=== PATIENT | female | born 1945 ===

== ENCOUNTER 2020-12-28 17:26 | Inpatient (IN) ==
[2020-12-28] MEDS ORDERED: diphenhydrAMINE CAP 25 MG CAPSULE PO PRN (20:30)
[2020-12-28] MEDS ORDERED: DEXTROSE 50% 25 GM/50 ML VIAL IV PRN (20:30)
[2020-12-28] MEDS ORDERED: MORPHINE 4 MG/1 ML VIAL IV PRN (20:30)
[2020-12-28] MEDS ORDERED: hydrALAZINE 20 MG/1 ML VIAL IV PRN (20:30)
[2020-12-28] MEDS ORDERED: NICOTINE 21 MG/24 HR PATCH TRANSDERM PRN (20:30)
[2020-12-28] MEDS ORDERED: ONDANSETRON 4 MG/2 ML VIAL IV PRN (20:30)
[2020-12-28] MEDS ORDERED: GLUCAGON 1 MG VIAL IM PRN (20:30)
[2020-12-28] MEDS ORDERED: ACETAMINOPHEN 325 MG TABLET PO PRN (20:30)
[2020-12-28 21:06] LABS: Hematocrit 41.6 VOL% (35.7-47.0); Immature Granulocytes % 0.6 %; Immature Granulocytes Absolute 0.04 #; Lymphocytes # 0.3 10*3/uL (1.4-4.0); Lymphocytes % 4.7 % (21.3-54.2); Mean Corpuscular HGB Conc 33.7 GM/DL (32-36); Mean Corpuscular Volume 86.1 FL (87-102); Mean Platelet Volume 11.5 FL (9.6-12.0); Monocytes % 6.4 % (1.7-12.7); Neutrophils % 88.3 % (38.7-73.9); Platelet Count 104 T/CUMM (130-400); Red Blood Count 4.83 MC/CUMM (3.8-5.5); Red Cell Distribution Width 18.4 % (9.3-17.3)
[2020-12-28 21:28] LABS: Lymphocytes 7 % (20-55); Segmented Neutrophils 91 % (50-85); Total Cells Counted 100
[2020-12-28 21:30] LABS: Albumin 2.8 G/DL (3.4-5.0); Calcium 8.8 MG/DL (8.5-10.1); Osmolality,Calculated 295.5 MOS/KG (273-304)
[2020-12-28 21:46] LABS: Potassium 6.1 MMOL/L (3.5-5.1)
[2020-12-28] MEDS ORDERED: SODIUM POLYSTYRENE SULFATE 15 GM/60 ML BOTTLE PO ONE (21:58)
[2020-12-29] MEDS: ALBUTEROL/IPRATROPIUM 3 ML NEB RESP TX SCH ×3 (07:02→19:46)
[2020-12-29 08:36] LABS: Albumin 2.6 G/DL (3.4-5.0); Osmolality,Calculated 291.8 MOS/KG (273-304); Potassium 5.8 MMOL/L (3.5-5.1); Total Protein 6.9 G/DL (6.4-8.3)
[2020-12-29] MEDS ORDERED: SODIUM POLYSTYRENE SULFATE 15 GM/60 ML BOTTLE PO SCH (15:00)
[2020-12-29] MEDS: SODIUM POLYSTYRENE SULFATE 15 GM/60 ML BOTTLE RECTAL SCH ×2 (15:58→23:05)
[2020-12-30] MEDS: ALBUTEROL/IPRATROPIUM 3 ML NEB RESP TX SCH ×4 (00:39→19:53)
[2020-12-30] MEDS: SODIUM POLYSTYRENE SULFATE 15 GM/60 ML BOTTLE RECTAL SCH ×2 (05:54→07:42)
[2020-12-30] MEDS: carvediloL 6.25 MG TABLET PO SCH (08:13)
[2020-12-30] MEDS: DIGOXIN 0.125 MG TABLET PO SCH (08:13)
[2020-12-30] MEDS: ASPIRIN CHEW 81 MG TABLET PO SCH (08:13)
[2020-12-30 08:15] LABS: Hemoglobin 12.3 GM/DL (12.0-16.0); Immature Granulocytes % 0.6 %; Immature Granulocytes Absolute 0.04 #; Lymphocytes # 0.2 10*3/uL (1.4-4.0); Lymphocytes % 3.4 % (21.3-54.2); Mean Corpuscular HGB Conc 31.5 GM/DL (32-36); Mean Corpuscular Volume 89.9 FL (87-102); Monocytes % 4.1 % (1.7-12.7); Neutrophils % 91.9 % (38.7-73.9); Red Blood Count 4.34 MC/CUMM (3.8-5.5); White Blood Count 6.5 T/CUMM (4-12)
[2020-12-30 08:23] LABS: Platelet Count 82 T/CUMM (130-400)
[2020-12-30 08:35] LABS: Band Neutrophils 1 % (0-10); Lymphocytes 2 % (20-55); Platelet Estimate Decreased; Segmented Neutrophils 96 % (50-85); Total Cells Counted 100
[2020-12-30 09:17] LABS: Calcium 8.7 MG/DL (8.5-10.1); Potassium 3.6 MMOL/L (3.5-5.1)
[2020-12-31] MEDS: ALBUTEROL/IPRATROPIUM 3 ML NEB RESP TX SCH ×4 (01:03→19:49)
[2020-12-31 04:10] LABS: Basophils # 0.1 10*3/uL (0.0-0.2); Basophils % 0.6 % (0.0-0.8); Hematocrit 34.9 VOL% (35.7-47.0); Hemoglobin 11.8 GM/DL (12.0-16.0); Immature Granulocytes % 0.6 %; Immature Granulocytes Absolute 0.05 #; Lymphocytes # 0.2 10*3/uL (1.4-4.0); Lymphocytes % 2.1 % (21.3-54.2); Mean Corpuscular HGB Conc 33.8 GM/DL (32-36); Mean Corpuscular Volume 85.3 FL (87-102); Monocytes % 5.6 % (1.7-12.7); Neutrophils % 91.1 % (38.7-73.9); Platelet Count 60 T/CUMM (130-400); Red Blood Count 4.09 MC/CUMM (3.8-5.5); Red Cell Distribution Width 17.6 % (9.3-17.3); White Blood Count 8.4 T/CUMM (4-12)
[2020-12-31 04:28] LABS: Calcium 8.7 MG/DL (8.5-10.1); Osmolality,Calculated 291.1 MOS/KG (273-304); Potassium 3.6 MMOL/L (3.5-5.1)
[2020-12-31 05:05] LABS: Lymphocytes 1 % (20-55); Segmented Neutrophils 95 % (50-85); Total Cells Counted 100
[2020-12-31 05:06] LABS: Hypochromasia 1+; Microcytosis 1+; Ovalocytes Few
[2020-12-31 05:07] LABS: Platelet Estimate Decreased; Target Cells Slight
[2020-12-31] MEDS: carvediloL 6.25 MG TABLET PO SCH (08:53)
[2020-12-31] MEDS: DIGOXIN 0.125 MG TABLET PO SCH (08:53)
[2020-12-31] MEDS: ASPIRIN CHEW 81 MG TABLET PO SCH (08:53)
[2020-12-31 11:52] LABS: Albumin 2.2 G/DL (3.4-5.0); Bilirubin,Direct 0.32 MG/DL (0.0-0.20); Bilirubin,Indirect 1.5 MG/DL (0.0-1.0); Bilirubin,Total 1.8 MG/DL (0.2-1.0); Total Protein 6.3 G/DL (6.4-8.3)
[2020-12-31] MEDS ORDERED: HEPARIN DRIP 25,000 UNITS/500 ML PREMIX IV SCH (15:00)
[2020-12-31] MEDS ORDERED: ENOXAPARIN 60 MG/0.6 ML SYRINGE SUBCUT SCH (15:00)
[2021-01-01 03:17] LABS: Basophils % 0.1 % (0.0-0.8); Hematocrit 35.3 VOL% (35.7-47.0); Hemoglobin 11.8 GM/DL (12.0-16.0); Immature Granulocytes % 0.6 %; Immature Granulocytes Absolute 0.05 #; Lymphocytes # 0.2 10*3/uL (1.4-4.0); Lymphocytes % 2.6 % (21.3-54.2); Mean Corpuscular HGB Conc 33.4 GM/DL (32-36); Mean Corpuscular Volume 87.8 FL (87-102); Monocytes % 5.2 % (1.7-12.7); Neutrophils % 91.5 % (38.7-73.9); Red Blood Count 4.02 MC/CUMM (3.8-5.5); Red Cell Distribution Width 17.8 % (9.3-17.3); White Blood Count 8.3 T/CUMM (4-12)
[2021-01-01 03:18] LABS: Platelet Count 49 T/CUMM (130-400)
[2021-01-01 03:42] LABS: Albumin 2.2 G/DL (3.4-5.0); Bilirubin,Total 1.5 MG/DL (0.2-1.0); Calcium 8.7 MG/DL (8.5-10.1); Osmolality,Calculated 291.7 MOS/KG (273-304); Potassium 3.1 MMOL/L (3.5-5.1); Total Protein 6.5 G/DL (6.4-8.3)
[2021-01-01 04:24] LABS: Metamyelocytes 1 %; Segmented Neutrophils 95 % (50-85); Total Cells Counted 100
[2021-01-01 04:25] LABS: Band Neutrophils 1 % (0-10); Lymphocytes 2 % (20-55)
[2021-01-01 04:26] LABS: Hypochromasia 1+; Microcytosis 1+; Ovalocytes Slight; Platelet Estimate Decreased; Target Cells Slight
[2021-01-01] MEDS: ALBUTEROL/IPRATROPIUM 3 ML NEB RESP TX SCH ×4 (05:02→19:49)
[2021-01-01] MEDS: carvediloL 6.25 MG TABLET PO SCH (08:54)
[2021-01-01] MEDS: POTASSIUM CHLORIDE 20 MEQ TABLET PO PRN ×2 (08:54→11:05)
[2021-01-01] MEDS: DIGOXIN 0.125 MG TABLET PO SCH (08:54)
[2021-01-01] MEDS: POLYETHYLENE GLYCOL POWDER 17 GM PACK PO SCH (08:55)
[2021-01-01] MEDS: ASPIRIN CHEW 81 MG TABLET PO SCH (08:55)
[2021-01-01] MEDS ORDERED: CITALOPRAM 20 MG TABLET PO SCH (09:00)
[2021-01-01 11:15] LABS: ABG Base Excess 5.1 MMOL/L (-2.5-2.5); ABG Oxygen Saturation 97.7 % (95-100); ABG PCO2 29.1 MM HG (35-48); ABG PH 7.569 (7.35-7.45); ABG PO2 78.4 MM HG (80-95); ABG TCO2 23.6 MMOL/L (23-27)
[2021-01-01] MEDS ORDERED: PIPERACILLIN/TAZOBACTAM 3,375 MG in SODIUM CHLORIDE 0.9% 100 ML IV SCH (13:00)
[2021-01-01 13:03] LABS: Hematocrit 33.5 VOL% (35.7-47.0); Hemoglobin 10.7 GM/DL (12.0-16.0); Immature Granulocytes % 0.6 %; Immature Granulocytes Absolute 0.07 #; Lymphocytes # 0.3 10*3/uL (1.4-4.0); Lymphocytes % 2.6 % (21.3-54.2); Mean Corpuscular HGB Conc 31.9 GM/DL (32-36); Mean Corpuscular Volume 86.8 FL (87-102); Monocytes % 6.1 % (1.7-12.7); Neutrophils % 90.7 % (38.7-73.9); Platelet Count 53 T/CUMM (130-400); Red Blood Count 3.86 MC/CUMM (3.8-5.5); Red Cell Distribution Width 17.8 % (9.3-17.3); White Blood Count 11.2 T/CUMM (4-12)
[2021-01-01 13:20] LABS: Amorphous Crystals,Urine Occasional /HPF (Few); Bacteria,Urine Moderate /HPF (Few); Bilirubin,Urine Negative (Negative); Blood, Urine Large mg/dL (Negative); Glucose,Urine (UA) Negative (Negative); Hyaline Casts,Urine 71 /LPF (0-3); Ketones,Urine Negative (Negative); Mucus,Urine Few /LPF (Occasional); Nitrite,Urine Negative (Negative); Protein,Urine 100 MG/DL; RBC,Urine 693 /HPF (0-4); Squamous Epithelial Cell,Urine Occasional /HPF (0-10); Urine Appearance CLOUDY (Clear); Urine Color Amber (Yellow); Urine Specific Gravity 1.017 (1.001-1.035); WBC,Urine 52 /HPF (0-6)
[2021-01-01] MEDS ORDERED: SODIUM CHLORIDE 0.9% 250 ML IV ONE ×3 (14:40→18:48)
[2021-01-01] MEDS: LEVOFLOXACIN INJ 750 MG in PREMIX 1 EACH IV SCH (14:58)
[2021-01-01 15:21] LABS: Hematocrit 36.3 VOL% (35.7-47.0); Hemoglobin 11.6 GM/DL (12.0-16.0)
[2021-01-01] MEDS: POTASSIUM CHLORIDE RIDER 10 MEQ in PREMIX 1 EACH IV PRN ×2 (18:41→20:30)
[2021-01-01 19:01] LABS: Anisocytosis 3+; Hypochromasia 3+; Lymphocytes 1 % (20-55); Microcytosis 3+; Nucleated Red Blood Cells 1 (0-5); Poikilocytosis 2+; Segmented Neutrophils 93 % (50-85); Total Cells Counted 100
[2021-01-01] MEDS: NOREPINEPHRINE 8 MG in SODIUM CHLORIDE 0.9% 242 ML IV PRN (20:11)
[2021-01-01] MEDS ORDERED: APIXABAN 2.5 MG TABLET PO SCH (21:00)
[2021-01-02] MEDS: ALBUTEROL/IPRATROPIUM 3 ML NEB RESP TX SCH ×4 (00:38→19:26)
[2021-01-02 06:49] LABS: Basophils % 0.2 % (0.0-0.8); Hematocrit 37.4 VOL% (35.7-47.0); Hemoglobin 11.2 GM/DL (12.0-16.0); Immature Granulocytes % 0.6 %; Immature Granulocytes Absolute 0.09 #; Lymphocytes # 0.5 10*3/uL (1.4-4.0); Lymphocytes % 2.8 % (21.3-54.2); Mean Corpuscular HGB Conc 29.9 GM/DL (32-36); Mean Corpuscular Volume 92.8 FL (87-102); Mean Platelet Volume 11.6 FL (9.6-12.0); Monocytes % 4.4 % (1.7-12.7); Platelet Count 72 T/CUMM (130-400); Red Blood Count 4.03 MC/CUMM (3.8-5.5); Red Cell Distribution Width 17.8 % (9.3-17.3); White Blood Count 16.2 T/CUMM (4-12)
[2021-01-02 07:05] LABS: Calcium 8.4 MG/DL (8.5-10.1); Osmolality,Calculated 291.5 MOS/KG (273-304); Potassium 4.3 MMOL/L (3.5-5.1)
[2021-01-02 07:17] LABS: Hypochromasia 1+; Lymphocytes 1 % (20-55); Microcytosis 1+; Platelet Estimate Decreased; Segmented Neutrophils 96 % (50-85); Total Cells Counted 100
[2021-01-02] MEDS ORDERED: NOREPINEPHRINE 4 MG/4 ML VIAL IV ONE (08:52)
[2021-01-02] MEDS: NOREPINEPHRINE 8 MG in SODIUM CHLORIDE 0.9% 242 ML IV PRN (08:56)
[2021-01-02] MEDS: ASPIRIN CHEW 81 MG TABLET PO SCH (09:42)
[2021-01-02] MEDS: carvediloL 6.25 MG TABLET PO SCH (09:42)
[2021-01-02] MEDS: DIGOXIN 0.125 MG TABLET PO SCH (09:42)
[2021-01-02] MEDS: POLYETHYLENE GLYCOL POWDER 17 GM PACK PO SCH (09:43)
[2021-01-02] MEDS: LEVOFLOXACIN INJ 750 MG in PREMIX 1 EACH IV SCH (15:46)
[2021-01-02] MEDS: MIDODRINE 5 MG TABLET PO SCH ×2 (15:47→20:42)
[2021-01-03] MEDS: ALBUTEROL/IPRATROPIUM 3 ML NEB RESP TX SCH ×4 (01:24→19:55)
[2021-01-03 04:25] LABS: Basophils % 0.2 % (0.0-0.8); Hematocrit 35.5 VOL% (35.7-47.0); Hemoglobin 11.2 GM/DL (12.0-16.0); Immature Granulocytes % 0.6 %; Immature Granulocytes Absolute 0.09 #; Lymphocytes # 0.4 10*3/uL (1.4-4.0); Lymphocytes % 2.7 % (21.3-54.2); Mean Corpuscular HGB Conc 31.5 GM/DL (32-36); Mean Corpuscular Volume 90.1 FL (87-102); Monocytes % 3.8 % (1.7-12.7); Neutrophils % 92.7 % (38.7-73.9); Red Blood Count 3.94 MC/CUMM (3.8-5.5); Red Cell Distribution Width 17.8 % (9.3-17.3); White Blood Count 15.1 T/CUMM (4-12)
[2021-01-03 04:36] LABS: Platelet Count 36 T/CUMM (130-400)
[2021-01-03 04:38] LABS: Calcium 8.7 MG/DL (8.5-10.1); Osmolality,Calculated 293.7 MOS/KG (273-304); Potassium 4.4 MMOL/L (3.5-5.1)
[2021-01-03 04:51] LABS: Band Neutrophils 4 % (0-10); Hypochromasia 1+; Lymphocytes 3 % (20-55); Microcytosis 1+; Ovalocytes Slight; Segmented Neutrophils 88 % (50-85); Target Cells Slight; Total Cells Counted 100
[2021-01-03] MEDS: ASPIRIN CHEW 81 MG TABLET PO SCH (08:45)
[2021-01-03] MEDS: MIDODRINE 5 MG TABLET PO SCH ×3 (08:45→20:13)
[2021-01-03] MEDS: POLYETHYLENE GLYCOL POWDER 17 GM PACK PO SCH ×2 (08:45→08:55)
[2021-01-03] MEDS: DIGOXIN 0.125 MG TABLET PO SCH (08:45)
[2021-01-03] MEDS: LEVOFLOXACIN INJ 750 MG in PREMIX 1 EACH IV SCH (14:59)
[2021-01-03] MEDS ORDERED: SODIUM CHLORIDE 0.9% 500 ML IV ONE ×2 (15:32→15:52)
[2021-01-03] MEDS ORDERED: ALBUMIN 25% 25 GM in PREMIX 1 EACH IV ONE (15:33)
[2021-01-03] MEDS ORDERED: IMMUNE GLOBULIN 10% 20 GM in PREMIX 1 EACH IV ONE (17:22)
[2021-01-03] MEDS ORDERED: CALCIUM CHLORIDE 1,000 MG/10 ML SYRINGE IV ONE (19:05)
[2021-01-03] MEDS ORDERED: EPINEPHrine 1 MG/10 ML SYRINGE ONE (19:05)
[2021-01-03] MEDS ORDERED: AMIODARONE 150 MG/3 ML VIAL ONE (19:05)
[2021-01-03] MEDS ORDERED: SODIUM BICARBONATE 50 MEQ/50 ML SYRINGE IV ONE (19:05)
[2021-01-03 19:41] LABS: HIT Interpretation Negative (Negative)
[2021-01-03] MEDS ORDERED: FUROSEMIDE 40 MG/4 ML VIAL IV ONE (23:09)
[2021-01-04] MEDS: ALBUTEROL/IPRATROPIUM 3 ML NEB RESP TX SCH ×4 (00:52→20:34)
[2021-01-04 06:40] LABS: Basophils % 0.2 % (0.0-0.8); Hematocrit 28.8 VOL% (35.7-47.0); Immature Granulocytes % 0.6 %; Immature Granulocytes Absolute 0.07 #; Lymphocytes # 0.5 10*3/uL (1.4-4.0); Lymphocytes % 3.8 % (21.3-54.2); Mean Corpuscular HGB Conc 34.7 GM/DL (32-36); Mean Corpuscular Volume 87.5 FL (87-102); Monocytes % 3.8 % (1.7-12.7); NRBC # 0.02 10*3/uL; Neutrophils % 91.6 % (38.7-73.9); Red Blood Count 3.29 MC/CUMM (3.8-5.5); Red Cell Distribution Width 17.6 % (9.3-17.3); White Blood Count 12.2 T/CUMM (4-12)
[2021-01-04 06:42] LABS: Platelet Count 17 T/CUMM (130-400)
[2021-01-04 06:52] LABS: Calcium 8.8 MG/DL (8.5-10.1); Potassium 5.3 MMOL/L (3.5-5.1)
[2021-01-04] MEDS: POLYETHYLENE GLYCOL POWDER 17 GM PACK PO SCH (08:21)
[2021-01-04] MEDS: DIGOXIN 0.125 MG TABLET PO SCH (08:22)
[2021-01-04] MEDS: MIDODRINE 5 MG TABLET PO SCH ×3 (08:22→20:59)
[2021-01-04] MEDS: ASPIRIN CHEW 81 MG TABLET PO SCH (08:22)
[2021-01-04] MEDS ORDERED: SODIUM CHLORIDE 0.9% 1,000 ML IV PRN (08:39)
[2021-01-04 08:43] LABS: Band Neutrophils 2 % (0-10); Lymphocytes 6 % (20-55); Platelet Estimate Decreased; Segmented Neutrophils 88 % (50-85); Total Cells Counted 100
[2021-01-04] MEDS ORDERED: SODIUM POLYSTYRENE SULFATE 15 GM/60 ML BOTTLE PO ONE (10:18)
[2021-01-04] MEDS: LEVOFLOXACIN INJ 750 MG in PREMIX 1 EACH IV SCH (15:00)
[2021-01-04] MEDS ORDERED: NOREPINEPHRINE 4 MG/4 ML VIAL IV ONE (18:58)
[2021-01-04] MEDS ORDERED: SODIUM CHLORIDE 0.9% 1,000 ML IV ONE (19:03)
[2021-01-04] MEDS ORDERED: NOREPINEPHRINE 8 MG in SODIUM CHLORIDE 0.9% 242 ML IV PRN (19:03)
[2021-01-04] MEDS ORDERED: AMIODARONE INJ 450 MG in DEXTROSE 5% 241 ML IV SCH (19:19)
[2021-01-04 20:40] VITALS: BP 96/70
[2021-01-04] MEDS ORDERED: EPINEPHrine 1 MG/10 ML SYRINGE IV ONE (22:09)
[2021-01-04] MEDS ORDERED: CALCIUM CHLORIDE 1,000 MG/10 ML SYRINGE IV ONE (22:09)
[2021-01-04] MEDS ORDERED: SODIUM BICARBONATE 50 MEQ/50 ML SYRINGE IV ONE (22:09)
[2021-01-04] MEDS ORDERED: AMIODARONE 150 MG/3 ML VIAL IV ONE (22:09)
== END 2021-01-04 22:10 | disposition expired | DRG 871 ==
LOC: N.5E 19:35 → INTOOBSV 19:35 → SUATTDRO 12-31 15:09 → N.CC 01-01 13:13 → N.TELEN 01-04 15:15 → N.CC 01-04 18:56
PROVIDERS: ADMIT Internal Medicine; ATTEND Internal Medicine